=== PATIENT | male | born 1955 | race Caucasian/White ===

== ENCOUNTER 2021-06-06 07:14 | Day surgery (SDC) | payer BC ==
[2021-05-09 12:23] VITALS: BMI 31.8
[2021-06-06] MEDS ORDERED: LIDOCAINE HCL/PF 2% SDV 5ML VIAL ONE (07:53)
[2021-06-06] MEDS ORDERED: PROPOFOL 20 ML ONE ×4 (07:53)
[2021-06-06 09:06] VITALS: PULSE 82; TEMP 97.8
[2021-06-06 09:22] VITALS: BP 110/74
== END 2021-06-06 09:24 | disposition home or self-care (01) ==
LOC: FASU-ENDO 07:14
PROVIDERS: ATTEND Internal Medicine Gastroenterology
PROC: 0DJD8ZZ Inspection of Lower Intestinal Tract, Via Natural or Artificial Opening Endoscopic (ICD-10-PCS; principal; 2021-06-06 08:36)
DX: Z12.11 Encounter for screening for malignant neoplasm of colon (principal); K57.30 Diverticulosis of large intestine without perforation or abscess without bleeding; Z98.0 Intestinal bypass and anastomosis status